=== PATIENT | female | born 1955 | race Caucasian/White ===

== ENCOUNTER 2016-12-05 20:53 | Emergency (ER) | payer MEDICARE, OTHER ==
[2016-12-05] MEDS ORDERED: NORMAL SALINE 1000 ML 1,000 ML IV ONE (21:43)
[2016-12-05] MEDS ORDERED: ONDANSETRON HCL INJ/PF 4 MG/2 ML SDV IV ONE (21:44)
[2016-12-05] MEDS ORDERED: HYDROMORPHONE HCL INJ/PF 2 MG/ML AMPULE IV ONE (21:44)
[2016-12-05 22:37] LABS: ABSOLUTE BASOPHILS # (AUTO) 0.1 10^3/uL (0.0-0.2); ABSOLUTE EOSINOPHILS # (AUTO) 0.1 10^3/uL (0.0-0.6); ABSOLUTE LYMPHOCYTES (AUTO) 1.2 10^3/uL (0.5-4.7); ABSOLUTE MONOCYTES (AUTO) 0.5 10^3/uL (0.1-1.4); ABSOLUTE NEUT (AUTO) 5.6 10^3/uL (1.7-8.2); EOSINOPHILS % (AUTO) 1.7 % (0-6); HEMATOCRIT 35.8 % (36.0-47.0); HEMOGLOBIN 12.1 g/dL (12.0-15.5); HGB HCT DIFFERENCE 0.5; LYMPHOCYTES % (AUTO) 16.4 % (13-45); MEAN CORPUSCULAR HGB CONC 33.7 g/dL (32.0-36.0); MEAN CORPUSCULAR VOLUME 92 fl (80-97); MONOCYTES % (AUTO) 7.2 % (3-13); RED CELL DISTRIBUTION WIDTH 15.2 % (11.5-14.0); SEGMENTED NEUTROPHILS % (AUTO) 73.7 % (42-78); WHITE BLOOD COUNT 7.6 10^3/uL (4.0-10.5)
[2016-12-05 22:55] LABS: ALANINE AMINOTRANSFERASE 37 U/L (9-52); ALBUMIN 3.4 g/dL (3.5-5.0); ALKALINE PHOSPHATASE 70 U/L (38-126); ANION GAP 8 (5-19); ASPARTATE AMINO TRANSFERASE 32 U/L (14-36); BILIRUBIN,DIRECT 0.1 mg/dL (0.0-0.4); BILIRUBIN,TOTAL 1.9 mg/dL (0.2-1.3); BLOOD UREA NITROGEN 14 mg/dL (7-20); CALCIUM 9.3 mg/dL (8.4-10.2); CARBON DIOXIDE 25 mmol/L (22-30); CHLORIDE 109 mmol/L (98-107); CREATININE RESULT 0.66 mg/dL (0.52-1.25); GLUCOSE 136 mg/dL (75-110); SODIUM 142.3 mmol/L (137-145)
[2016-12-05] MEDS ORDERED: LIDOCAINE 1% INJ-PF (10 MG/ML) 30 ML SDV INJ ONE (23:55)
[2016-12-06] MEDS ORDERED: HYDROMORPHONE HCL INJ/PF 2 MG/ML AMPULE IV ONE (01:03)
--- NOTE | 2016-12-06 03:05 | ER Document Report ---
ED Fall - General Chief Complaint: Fall, facial injury, R shoulder pain Stated Complaint: FALL,NOSE INJURY Mode of Arrival: Medic Information source: Patient, Relative Notes: 61-year-old female presents to the emergency department with family members complaining of right shoulder and facial pain, and upper lip laceration status post mechanical fall. Patient reports was at [employer] restaurant when she tripped and fell striking her face on a stool. Denies loss of consciousness, vision changes, chest pain, shortness of breath, extremity weakness/numbness/ tingling, nausea or vomiting. Patient reports history of cirrhosis and thrombocytopenia. Reports tetanus vaccination within the last 2 years. TRAVEL OUTSIDE OF THE [place] IN LAST 30 DAYS: No - HPI Occurred: This evening Where: Indoors Context: Tripped, Fell from standing Associated symptoms: denies: Lost consciousness, Dazed/confused, Difficulty breathing Location of injury/pain: Face, Shoulder Quality of pain: Achy Severity: Moderate Pain Level: 4 Prehospital interventions: IV, Analgesia - Related data Allergies/Adverse Reactions: ibuprofen Adverse Reaction (Verified 12/05/16 21:33) Past Medical History - General Information source: Patient - Social History Smoking Status: Never Smoker Frequency of alcohol use: None Drug Abuse: None Lives with: Family Family History: CAD, Other - Mother, grandfather: [place] Patient has suicidal ideation: No - Past Medical History Cardiac Medical History: Reports: Hx Hypercholesterolemia, Hx Hypertension Denies: Hx Atrial Fibrillation, Hx Congestive Heart Failure, Hx Heart Attack Neurological Medical History: Reports: Hx Migraine Renal/ Medical History: Denies: Hx Peritoneal Dialysis GI Medical History: Reports: Hx Gastroesophageal Reflux Disease Past Surgical History: Reports: Hx Cholecystectomy - Immunizations Hx Diphtheria, Pertussis, Tetanus Vaccination: Yes Review of Systems - Review of Systems Constitutional: No symptoms reported EENT: See HPI Cardiovascular: No symptoms reported Respiratory: No symptoms reported Gastrointestinal: No symptoms reported Genitourinary: No symptoms reported Female Genitourinary: No symptoms reported Musculoskeletal: See HPI Skin: No symptoms reported Hematologic/Lymphatic: No symptoms reported Neurological/Psychological: No symptoms reported -: Yes All other systems reviewed and negative Physical Exam - Vital signs Vitals: Pulse Resp BP Pulse Ox 90 16 130/90 H 97 12/05/16 21:18 12/05/16 21:18 12/05/16 21:18 12/05/16 21:18 - General General appearance: Appears well, Alert In distress: None - HEENT Head: Normocephalic, Ecchymosis, Open wounds - Patient has approximately 4 cm horizontal laceration to upper lip and approximately 2 cm vertical laceration extending from horizontal laceration across mid lip. Laceration is not full- thickness., Tenderness - Tenderness with palpation to nose. Mild bruising and swelling to the nasal bridge with no obvious deformity or misalignment.. No: Atraumatic, Abrasions, Graham's sign, [place]'s eyes, Other Eyes: Normal Conjunctiva: Normal Extraocular movements intact: Yes Eyelashes: Normal Pupils: PERRL Ears: Normal External canal: Normal Tympanic membrane: Normal Sinus: Normal Nasal: Ecchymosis, Epistaxis - Controlled/stopped prior to arrival. No: Alex deformity, Septal hematoma Mouth/Lips: Laceration. No: Dental fracture Mucous membranes: Normal, Moist Pharynx: Normal. No: Blood in hypopharynx, Erythema, Exudate, Peritonsillar abscess, Post nasal drainage, Retropharyngeal abscess, Tonsillar hypertrophy, Uvular edema, Potential airway comprom., Other Neck: Normal. No: Anterior cervical chain, Posterior cervical chain, Lymphadenopathy, Meningismus, Subcutaneous emphysema - Respiratory Respiratory status: No respiratory distress Chest status: Nontender Breath sounds: Normal - CTAB Chest palpation: Normal. No: Flail segment, [place] frothy sputum, Purulent sputum , Subcutaneous emphysema, Sucking chest wound, Tender, Ecchymosis, Wounds, Other - Cardiovascular Rhythm: Regular Heart sounds: Normal auscultation Murmur: No Pulses: Normal: Radial, Posterior tibial, Dorsalis pedis Normal capillary refill: Yes - Abdominal Inspection: Normal Distension: No distension Bowel sounds: Normal Tenderness: Nontender Organomegaly: No organomegaly - Back Back: Normal, Nontender - Extremities General upper extremity: Normal inspection, Nontender, Normal color, Normal ROM , Normal strength, Normal temperature General lower extremity: Normal inspection, Nontender, Normal color, Normal ROM , Normal strength, Normal temperature, Normal weight bearing Shoulder: Tender - Tenderness with palpation to lateral aspect of right shoulder. Limited range of motion due to pain. Distal motor and neurovascular function intact with immediate capillary refill, intact sensation, and palpable radial pulses. Arm: Normal, Nontender Elbow: Normal, Nontender Forearm: Normal, Nontender Wrist: Normal, Nontender Hand: Normal, Nontender Hip: Normal, Nontender Thigh: Normal, Nontender Knee: Normal, Nontender Calf: Normal, Nontender Ankle: Normal, Nontender Foot: Normal, Nontender - Neurological Neuro grossly intact: Yes Cognition: Normal Orientation: AAOx4 Andrew Coma Scale Eye Opening: Spontaneous [place] Coma Scale Verbal: Oriented [place] Coma Scale Motor: Obeys Commands [place] Coma Scale Total: 15 Speech: Normal Cranial nerves: Normal Cerebellar coordination: Normal Motor strength normal: LUE, RUE, LLE, RLE Sensory: Normal - Skin Skin Temperature: Warm Skin Moisture: Dry Skin Color: Normal Course - Re-evaluation Re-evalutation: 12/06/16 03:08 Patient hemodynamically stable, in no distress, neurologically intact. CT of head/facial area shows comminuted nasal bone fracture bilaterally. No intracranial bleeding or injury. Right shoulder x-ray shows avulsion fracture of humerus with 2 mm lateral displacement. Patient laceration was thoroughly irrigated and wound edges approximated with interrupted sutures. Absorbable sutures were used inferior to the vermilion border. Patient tolerated well. Sling was placed to right shoulder. Patient appears stable for discharge and family members and patient agree with home care, follow-up with PCP, [facility], and orthopedics, and ED return precautions. ED physician Dr. Carreon was consulted and evaluated patient in the ED and concurs with evaluation and treatment. - Vital Signs Vital signs: Temp Pulse Resp BP Pulse Ox 98.1 F 71 18 132/72 H 93 12/06/16 03:58 12/06/16 03:58 12/06/16 03:58 12/06/16 03:58 12/06/16 03:58 - Laboratory Result Diagrams: 12/05/16 22:20 12/05/16 22:20 Laboratory results interpreted by me: 12/05/16 12/05/16 22:20 22:20 Hct 35.8 L RDW 15.2 H Plt Count 70 L Chloride 109 H Glucose 136 H Total Bilirubin 1.9 H Total Protein 6.0 L Albumin 3.4 L - Diagnostic Test Radiology reviewed: Image reviewed, Reports reviewed Procedures - Laceration/Wound Repair Mid- Face Time completed: 02:00 Wound length (cm): 5 Wound's Depth, Shape: Irregular Laceration pre-procedure: Sterile PPE donned, Sterile drapes applied Anesthetic type: 1% Lidocaine Volume Anesthetic (mLs): 6 Wound explored: Clean, No foreign body removed Irrigated w/ Saline (mLs): 1,000 - with chlorhexidine Wound Debrided: Minimal Wound Repaired With: Sutures Suture Size/Type: 5:0, Nylon, Other - Chromic gut Number of Sutures: 12 Layer Closure?: No Post-procedure wound care: Sterile dressing applied Post-procedure NV exam normal: Yes Complications: No Adult Head Front/Back picture: 1 - Laceration 2 - Laceration Discharge - Discharge Clinical Impression: Avulsion fracture Fall Qualifiers: Encounter type: initial encounter Qualified Code(s): W19.XXXA - Unspecified fall, initial encounter Facial laceration Qualifiers: Encounter type: initial encounter Qualified Code(s): S01.81XA - Laceration without foreign body of other part of head, initial encounter Nasal bone fractures Qualifiers: Encounter type: initial encounter Fracture type: closed Qualified Code(s): S02.2XXA - Fracture of nasal bones, initial encounter for closed fracture Condition: Stable Disposition: HOME, SELF-CARE Instructions: Head Injury Precautions ([facility]), Facial Laceration ([facility]), Fracture of the Nose ([facility]), Nosebleed Instructions ([facility]), Shoulder Injury ([facility]), Sling to be Used ([facility]), Oral Laceration, Sutured ([facility]), Oral Narcotic Medication ([facility]) , Augmentin ([facility]), Avulsion Fracture ([facility]) Additional Instructions: FOLLOW-UP CARE: Your sutures should be removed in 5 days. Your sutures may be removed by primary care provider or in order to facilitate a timely removal of your sutures, you may return to the [facility]. You do not need to call for an appointment, but the best time to come in for suture removal is early in the morning. If you experience a significant change in your laceration, or if you are concerned there may be an infection (swelling, redness, drainage, increasing tenderness, red streaks, or fever), return to the Emergency Department immediately re-evaluation. Prescriptions: Amox Tr/Potassium Clavulanate [Augmentin 875-125 Tablet] 1 tab PO BID 5 Days Hydrocodone/Acetaminophen [[place] 5-325 mg Tablet] 1 tab PO Q6H PRN #10 tablet PRN Reason: Referrals: BOYD IRAHETA MD [Primary Care Provider] - Follow up as needed NIEVES CRAFT DMD [ACTIVE STAFF] - Follow up tomorrow (Oral maxillofacial surgery) RANJEET SEU DO [ACTIVE STAFF] - Follow up tomorrow (Orthopedics)
[2016-12-06 04:04] VITALS: BP 132/72
== END 2016-12-06 04:07 | disposition home or self-care (01) ==
LOC: ER 20:53
PROC: 0HQ1XZZ Repair Face Skin, External Approach (ICD-10-PCS; principal; 2016-12-05)
DX: S01.81XA Laceration without foreign body of other part of head, initial encounter (principal); S02.2XXA Fracture of nasal bones, initial encounter for closed fracture; S09.90XA Unspecified injury of head, initial encounter; M25.511 Pain in right shoulder; W19.XXXA Unspecified fall, initial encounter
CPT/HCPCS: 96376; 99284; 96361; 96374; 96375; 36415; 85025; 80053; 73030; 70450; 70486; 72125; 12052; J3490; J1170 ×2; J2405; J7030

== ENCOUNTER 2016-12-13 10:48 | Emergency (ER) | payer MEDICARE, OTHER ==
[2016-12-13 11:00] VITALS: BP 122/71
[2016-12-13] MEDS ORDERED: HYDROCODONE/ACETAMINOPHEN 5-325 MG 6 TAB/DSPK PO PRN (11:38)
--- NOTE | 2016-12-13 11:40 | ER Document Report ---
ED Suture/Wound Recheck - General Chief Complaint: Suture Removal Stated Complaint: SUTURE REMOVAL Time seen by provider: 11:20 Mode of Arrival: Ambulatory Information source: Patient Notes: 61-year-old female presented to ED for suture removal from above her upper lip. She states she fell on [place] [address] and fractured her shoulder and had sutures in her upper lip. He has been on antibiotics in his taken those had not had pain medicine and has finished those and continues to have pain in her right shoulder. She has a follow-up appointment with her orthopedic surgeon on December 21. TRAVEL OUTSIDE OF THE [place] IN LAST 30 DAYS: No - HPI Previous ED treatment: Laceration repair Antibiotics given previously: Prescription Quality of pain: Achy, Sharp Pain Level: 3 - Level 3 and the shoulder level 1 and the lip Symptoms since procedure: Pain. denies: Fever, Red streaks, Redness, Swelling Exacerbated by: Movement - Of the shoulder Relieved by: Denies - Related Data Allergies/Adverse Reactions: ibuprofen Adverse Reaction (Verified 12/13/16 10:54) Past Medical History - General Information source: Patient - Social History Smoking Status: Never Smoker Cigarette use (# per day): No Chew tobacco use (# tins/day): No Smoking Education Provided: No Frequency of alcohol use: None Drug Abuse: None Lives with: Family Family History: CAD, Other - Mother, grandfather: [place] Patient has suicidal ideation: No Patient has homicidal ideation: No - Past Medical History Cardiac Medical History: Reports: Hx Hypercholesterolemia, Hx Hypertension Pulmonary Medical History: Reports: None EENT Medical History: Reports: None Neurological Medical History: Reports: Hx Migraine Endocrine Medical History: Reports: None Renal/ Medical History: Reports: None Malignancy Medical History: Reports: None GI Medical History: Reports: Hx Gastroesophageal Reflux Disease Musculoskeltal Medical History: Reports Hx Musculoskeletal Trauma - Fractured right humerus Skin Medical History: Reports None Psychiatric Medical History: Reports: None Traumatic Medical History: Reports: Hx Fractures - Right humerus Infectious Medical History: Reports: None Past Surgical History: Reports: Hx Cholecystectomy, Hx Orthopedic Surgery - Immunizations Hx Diphtheria, Pertussis, Tetanus Vaccination: Yes Review of Systems - Review of Systems Constitutional: No symptoms reported EENT: Other - Sutures intact to above upper lip. Well approximated will remove the sutures Cardiovascular: No symptoms reported Respiratory: No symptoms reported Gastrointestinal: No symptoms reported Genitourinary: No symptoms reported Female Genitourinary: No symptoms reported Musculoskeletal: Other - Right shoulder pain in the sling and follow as week Skin: Change in color - Ecchymosis to face and right shoulder from fall at week Hematologic/Lymphatic: No symptoms reported Neurological/Psychological: No symptoms reported Physical Exam - Vital signs Vitals: Temp Pulse Resp BP Pulse Ox 98.3 F 58 L 18 122/71 98 12/13/16 10:59 12/13/16 10:59 12/13/16 10:59 12/13/16 10:59 12/13/16 10:59 Interpretation: Normal - General General appearance: Appears well, Alert In distress: Mild - HEENT Head: Ecchymosis, Tenderness - To both cheeks lower chin multiple areas with bruises from follow-up S week, Other - Healing laceration above the upper lip Eyes: Normal Pupils: PERRL Ears: Normal External canal: Normal Tympanic membrane: Normal Sinus: Normal Nasal: Normal Mouth/Lips: Normal Pharynx: Other - Laceration in upper lip healing well sutures absorbed Neck: Normal - Respiratory Respiratory status: No respiratory distress Chest status: Nontender Breath sounds: Normal Chest palpation: Normal - Cardiovascular Rhythm: Regular Heart sounds: Normal auscultation Murmur: No - Abdominal Inspection: Normal Distension: No distension Bowel sounds: Normal Tenderness: Nontender Organomegaly: No organomegaly - Back Back: Normal, Nontender - Extremities General upper extremity: Normal temperature General lower extremity: Normal inspection, Nontender, Normal color, Normal ROM , Normal temperature, Normal weight bearing. No: Lakesha's sign Shoulder: Tender, Ecchymosis, Limited ROM - Humerus fracture last week patient is in a sling did not do range of motion to shoulder for this reason - Neurological Neuro grossly intact: Yes Cognition: Normal Orientation: AAOx4 Andrew Coma Scale Eye Opening: Spontaneous [place] Coma Scale Verbal: Oriented Andrew Coma Scale Motor: Obeys Commands [place] Coma Scale Total: 15 Speech: Normal Motor strength normal: LUE, RUE, LLE, RLE Sensory: Normal - Psychological Associated symptoms: Normal affect, Normal mood - Skin Skin Temperature: Warm Skin Moisture: Dry Skin Color: Normal, Ecchymosis - Multiple bruises to face and right shoulder Skin irregularity: Laceration - Healing laceration above the upper lip Course - Re-evaluation Re-evalutation: 12/13/16 12:38 Sutures removed from above upper lip. Patient tolerated well. Patient given a dispense pack of [place] as she is out of her pain medicine. Her right shoulder continues to hurt. She has a follow-up appointment appointment with the orthopedic surgeon on December 21. - Vital Signs Vital signs: Temp Pulse Resp BP Pulse Ox 98.3 F 58 L 18 122/71 99 12/13/16 11:00 12/13/16 11:00 12/13/16 11:00 12/13/16 11:00 12/13/16 11:00 Discharge - Discharge Clinical Impression: Visit for suture removal Condition: Stable Disposition: HOME, SELF-CARE Additional Instructions: You were seen today for suture removal from your face from a fall on the fourth. Your sutures have been removed. SOAP CLEANSING: Gently wash the wound daily using a mild soap (like Ivory, Phisoderm, Neutrogena). Use warm water, rubbing gently until all debris, ooze, and crusting have been washed from the wound. Allow to dry briefly (about 10 minutes) after cleaning. Repeat this cleansing at least three times a day for the first two days and then once or twice a day. ANTIBIOTIC OINTMENT PROTECTION: Your wounds are such that dressing them is not practical or optional. After cleansing, you should apply a thin coating of antibiotic ointment ( Bacitracin, not Neosporin) to the wounds at least three times daily. This lessens infection risk, and may decrease the amount of scarring. Use a q-tip or dull butter knife, not your finger, to apply this ointment. Any debris or ooze which builds up in the ointment should be gently rubbed off with a sterile gauze pad. Harder crusting may need to be gently scrubbed off with a clean wash cloth with soap and warm water, perhaps applying a warm, wet wash cloth to the wound for ten minutes first. Development of redness, severe itching, or blistering may mean allergy to the ointment. See the doctor. ORAL NARCOTIC MEDICATION: You have been given a prescription for pain control. This medication is a narcotic. It's best taken with food, as nausea can result if taken on an empty stomach. Don't operate machinery or drive within six hours of taking this medication. Do not combine this medicine with alcohol, or with any medication which can cause sedation (such as cold tablets or sleeping pills) unless you get permission from the physician. Narcotics tend to cause constipation. If possible, drink plenty of fluids and eat a diet high in fiber and fruits. FOLLOW-UP CARE: Follow up with your orthopedic surgeon for your continued pain in your right shoulder . If you have been referred to a physician for follow-up care, call the physician s office for an appointment as you were instructed or within the next two days. If you experience worsening or a significant change in your symptoms, notify the physician immediately or return to the Emergency Department at any time for re-evaluation. Please complete the patient's satisfaction survey if you get one and return. If you do not receive a survey you can go to [facility] website [email or web address] and place your comments about your very good care. Thank you very much. It was a pleasure be in your medical provider today. Referrals: BOYD IRAHETA MD [Primary Care Provider] - Follow up as needed
== END 2016-12-13 11:48 | disposition home or self-care (01) ==
LOC: ER 10:48
DX: Z48.02 Encounter for removal of sutures (principal)

== ENCOUNTER → 2017-03-03 | Outpatient (CLI) | payer MEDICARE, OTHER ==
--- NOTE | 2017-03-03 16:49 | RADIOLOGY REPORT (SQ) ---
EXAM DESCRIPTION: MRI RT UPPER JOINT WITHOUT COMPLETED DATE/TIME: 03/03/2017 3:37 pm REASON FOR STUDY: RIGHT SHOULDER PAIN (M25.511) M25.511 PAIN IN RIGHT SHOULDER COMPARISON: Right shoulder films 12/05/2016 TECHNIQUE: Right shoulder images acquired and stored on PACS. Multiplanar imaging to include fat sen sitive sequences such as T1, water sensitive sequences such as FST2/STIR, cartilage sensitive sequenc es such as FSPD/gradient-echo sequences. LIMITATIONS: None. FINDINGS: BONE MARROW AND CORTEX: Incomplete healing of the right humeral head fracture of the great er tuberosity and transverse right humeral metaphysis fracture at the surgical neck, with persistent fracture lines evident on coronal T2/proton density image 10 and sagittal T1 images 8-13. A 2 x 2 cm area of avascular necrosis subcortical bone right humeral head superior articular surface, best shown on sagittal image 8 and coronal image 11. No depression of the articular surface. JOINT OR BURSAL EFFUSION: Small joint effusion with trace fluid in the subacromial/subdeltoid bursa GLENO-HUMERAL ARTICULATION: Inferior subluxation of the right humeral head with respect to the bony g lenoid. There is a step-off at the surgical neck fracture which abuts the inferior edge of the gleno id on coronal image 10. ACROMION AND AC JOINT: Type 2 acromion, with bulky AC joint hypertrophy and synovial thickening. Th is mildly narrows the subacromial space ROTATOR CUFF AND INTERVAL: Anterior half of the supraspinatus tendon thickened and high in signal fro m tendinopathy on sagittal images 4-8, and coronal images 7-11. infraspinatus, subscapularis unremar kable. No rotator interval tear. No rotator interval thickening to suggest adhesive capsulitis. LABRUM AND BICEPS LABRAL COMPLEX: Intra-articular long head biceps tendon intact. Diffusely small glenoid labrum on the gradient echo axial images. PERIARTICULAR AND ADJACENT SOFT TISSUES: No masses or abnormal nodes. OTHER: No other significant finding. IMPRESSION: Nonunited right proximal humerus fracture involving the greater tuberosity and surgical neck. 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 No articular surf manuel collapse TECHNICAL DOCUMENTATION: JOB ID: [id number]- All Rights Reserved
== END ==
LOC: RAD 13:39
PROVIDERS: ATTEND Orthopaedic Surgery
DX: M25.511 Pain in right shoulder (principal); S42.251K Displaced fracture of greater tuberosity of right humerus, subsequent encounter for fracture with nonunion; X58.XXXD Exposure to other specified factors, subsequent encounter

== ENCOUNTER → 2018-07-03 | Outpatient (CLI) | payer MEDICARE, OTHER ==
[2018-07-03 12:44] LABS: ABSOLUTE LYMPHOCYTES (AUTO) 0.5 10^3/uL (0.5-4.7); ABSOLUTE MONOCYTES (AUTO) 0.1 10^3/uL (0.1-1.4); ABSOLUTE NEUT (AUTO) 0.4 10^3/uL (1.7-8.2); BASOPHILS % (AUTO) 0.9 % (0-2); EOSINOPHILS % (AUTO) 3.6 % (0-6); HEMATOCRIT 18.9 % (36.0-47.0); LYMPHOCYTES % (AUTO) 44.1 % (13-45); MEAN CORPUSCULAR HGB CONC 32.4 g/dL (32.0-36.0); MEAN CORPUSCULAR VOLUME 90 fl (80-97); MONOCYTES % (AUTO) 10.1 % (3-13); RED BLOOD COUNT 2.11 10^6/uL (3.72-5.28); RED CELL DISTRIBUTION WIDTH 16.7 % (11.5-14.0); SEGMENTED NEUTROPHILS % (AUTO) 41.3 % (42-78); TOTAL CELLS COUNTED % (AUTO) 100 %
[2018-07-03 12:51] LABS: ALANINE AMINOTRANSFERASE 16 U/L (9-52); ALBUMIN 2.6 g/dL (3.5-5.0); ALKALINE PHOSPHATASE 79 U/L (38-126); ASPARTATE AMINO TRANSFERASE 17 U/L (14-36); BILIRUBIN,DIRECT 0.2 mg/dL (0.0-0.4); TOTAL PROTEIN 5.2 g/dL (6.3-8.2)
[2018-07-03 14:11] LABS: WHITE BLOOD COUNT 1.1 10^3/uL (4.0-10.5)
[2018-07-03 14:12] LABS: HEMOGLOBIN 6.1 g/dL (12.0-15.5); PLATELET COUNT 58 10^3/uL (150-450)
[2018-07-03 14:15] LABS: ANISOCYTOSIS SLIGHT; HYPOCHROMASIA 1+; OVALOCYTES 1+; PLATELET COMMENT DECREASED; POIKILOCYTOSIS 1+; ROULEAUX SLIGHT
[2018-07-04 10:36] LABS: PATH REVIEW PATHOLOGIST REVIEWED
== END ==
LOC: OD 11:41
PROVIDERS: ATTEND Radiology Radiation Oncology
DX: C50.412 Malignant neoplasm of upper-outer quadrant of left female breast (principal); Z79.899 Other long term (current) drug therapy
CPT/HCPCS: 36415; 80076; 85025

== ENCOUNTER 2018-07-04 10:23 | Outpatient (CLI) | payer MEDICARE, OTHER ==
[~2018-07-04 10:23] MED LIST: ACETAMINOPHEN 325 MG TABLET PO PRN; DIPHENHYDRAMINE HCL 25 MG CAPSULE PO PRN
[2018-07-04 12:30] LABS: HEMATOCRIT 19.8 % (36.0-47.0); MEAN CORPUSCULAR HEMOGLOBIN 28.4 pg (27.0-33.4); MEAN CORPUSCULAR HGB CONC 31.8 g/dL (32.0-36.0); MEAN CORPUSCULAR VOLUME 89 fl (80-97); RED BLOOD COUNT 2.22 10^6/uL (3.72-5.28); RED CELL DISTRIBUTION WIDTH 17.3 % (11.5-14.0)
[2018-07-04 12:32] LABS: PLATELET COUNT 65 10^3/uL (150-450)
[2018-07-04 13:06] LABS: ALANINE AMINOTRANSFERASE 16 U/L (9-52); ALBUMIN 2.8 g/dL (3.5-5.0); ALKALINE PHOSPHATASE 83 U/L (38-126); ASPARTATE AMINO TRANSFERASE 17 U/L (14-36); BILIRUBIN,DIRECT 0.3 mg/dL (0.0-0.4); BILIRUBIN,TOTAL 0.9 mg/dL (0.2-1.3); TOTAL PROTEIN 5.3 g/dL (6.3-8.2)
[2018-07-04 13:07] LABS: ABSOLUTE LYMPHOCYTES# (MANUAL) 0.5 10^3/uL (0.5-4.7); ABSOLUTE MONOCYTES # (MANUAL) 0.1 10^3/uL (0.1-1.4); ABSOLUTE NEUTROPHILS# (MANUAL) 0.9 10^3/uL (1.7-8.2); BASOPHILS % (MANUAL) 0 % (0-2); EOSINOPHILS % (MANUAL) 2 % (0-6); LYMPHOCYTES % (MANUAL) 36 % (13-45); MONOCYTES % (MANUAL) 4 % (3-13); SEGMENTED NEUTROPHILS % (MAN) 58 % (42-78); TOTAL CELLS COUNTED 50
[2018-07-04 13:13] LABS: ANISOCYTOSIS 1+; OVALOCYTES 1+; PLATELET COMMENT DECREASED; POIKILOCYTOSIS 1+
[2018-07-04 13:27] LABS: WHITE BLOOD COUNT 1.5 10^3/uL (4.0-10.5)
[2018-07-04 13:28] LABS: HEMOGLOBIN 6.3 g/dL (12.0-15.5)
[2018-07-04] MEDS ORDERED: ACETAMINOPHEN 325 MG TABLET ONE (14:07)
[2018-07-04] MEDS ORDERED: DIPHENHYDRAMINE HCL 25 MG CAPSULE ONE (14:07)
[2018-07-04 16:01] VITALS: BP 131/93
[2018-07-04 16:56] LABS: HEMATOCRIT 21.4 % (36.0-47.0); MEAN CORPUSCULAR HEMOGLOBIN 29.2 pg (27.0-33.4); MEAN CORPUSCULAR HGB CONC 32.3 g/dL (32.0-36.0); MEAN CORPUSCULAR VOLUME 91 fl (80-97); RED BLOOD COUNT 2.37 10^6/uL (3.72-5.28); RED CELL DISTRIBUTION WIDTH 16.6 % (11.5-14.0); WHITE BLOOD COUNT 1.8 10^3/uL (4.0-10.5)
[2018-07-04 17:19] LABS: PLATELET COUNT 64 10^3/uL (150-450)
[2018-07-04 17:21] LABS: HEMOGLOBIN 6.9 g/dL (12.0-15.5)
== END 2018-07-04 16:27 | disposition home or self-care (01) ==
LOC: OD 10:23 → 5TH 13:18 → II 16:27
PROVIDERS: ATTEND Radiology Radiation Oncology
PROC: 30233N1 Transfusion of Nonautologous Red Blood Cells into Peripheral Vein, Percutaneous Approach (ICD-10-PCS; principal; 2018-07-04)
DX: K75.81 Nonalcoholic steatohepatitis (NASH) (principal); C50.412 Malignant neoplasm of upper-outer quadrant of left female breast; D05.12 Intraductal carcinoma in situ of left breast; Z79.899 Other long term (current) drug therapy
CPT/HCPCS: 86900; 86901; 36415; 36430; 86850; 85025; 85027; 80076; 86920; P9016; A9270 ×2